=== PATIENT | male | born 1945 | race Caucasian/White ===

== ENCOUNTER 2017-12-17 16:13 | Emergency (ER) | payer OTHER ==
[~2017-12-17] VITALS: Ht 172.7 cm; Wt 83.6 kg
[~2017-12-17 16:13] MED LIST: ASPEC81 PO; CHLO4TAB70 PO; CRS20 PO; LOSA50TA6 PO; MULT-506 PO; NTRSLP4 SL; OMEG10007 PO; SALI-3 NAE; TRIA0.1C20 TD
[2017-12-17 16:18] VITALS: TEMP 36.6; Ht 172.7 cm; Wt 83.6 kg
[2017-12-17] MEDS ORDERED: DiphenhydrAMINE HCL 50 MG/ML VIAL IV STA (16:27)
[2017-12-17] MEDS ORDERED: METOCLOPRAMIDE HCL INJ 5 MG/ML 2 ML VIAL IV STA (16:27)
[2017-12-17] MEDS ORDERED: ALBUT/IPRATROP 3MG/0.5MG NEB 3 ML VIAL INH ONE (16:30)
[2017-12-17] MEDS ORDERED: DEXAMETHASONE **PF** INJ 10 MG/ML VIAL IV ONE (16:30)
[2017-12-17 16:35] VITALS: O2SAT 99
--- NOTE | 2017-12-17 16:39 | EMERGENCY ROOM VISIT NOTE ---
History Report prepared by Scott: Valerie Reynoso Under the Supervision of: Dr. Murray Benitez M.D. First contact with patient: 16:22 Chief Complaint: CHEST PAIN Stated Complaint: COUGH, CHEST PAIN, FEVER, HEADACHE- REFERRED History of Present Illness The patient is a 72 year old male who presents to the Emergency Room with complaints of generalized illness beginning a week ago. The patient reports a headache which goes into his neck, a cough, chest tightness, and sweats. He also reports he started to feel lightheaded and dizzy beginning yesterday. He reports his chest pain and lightheadedness which have acutely worsened over the past day. The patient was at [facility] in hours just prior to arrival who referred him to the ED. He denies any nausea, vomiting, urinary burning, abdominal pain, or diarrhea. The patient last took Tylenol last night. The patient has had three cardiac bypass surgeries. He reports his chest tightness does not feel like it did when he had to have bypass surgery. The patient had bronchitis a month ago treated with an antibiotic and steroid. He is former smoker quit 35 years ago. He denies any history of COPD. The patient has a history of hypertension. Source of History: patient Onset: a week ago Position: other (generalized) Quality: other (illness) Timing: worsening Associated Symptoms: + headache, + diaphoresis, + cough, + chest pain, No nausea, No vomiting, No abdominal pain, No urinary symptoms Review of Systems See HPI for pertinent positives and negatives. A total of ten systems were reviewed and were otherwise negative. Past Medical & Surgical Medical Problems: (1) Benign hypertension (2) Cataract extraction and insertion of intraocular lens (3) Coronary artery bypass grafting (4) Gastroesophageal reflux disease (5) History of repair of inguinal hernia (6) History of tonsillectomy (7) Hyperlipidemia (8) lumbar laminectomy (9) Lung mass (10) myalgias (11) Osteoarthrosis involving multiple sites but not designated as generalized (12) POSTLAMINECTOMY SYND NOS Family History FH: heart disease FH: hypertension FH: seizures Social History Smoking Status: Former Smoker Alcohol Use: occasionally Drug Use: none Marital Status: Housing Status: lives with significant other Occupation Status: retired Current/Historical Medications Scheduled Aspirin (Aspirin Ec), 81 MG PO DAILY Azithromycin (Zithromax), 250 MG PO DAILY Fish Oil (Morrison-3), 2 CAP PO DAILY Losartan Potassium (Cozaar), 1 TAB PO QAM Multivitamin (Multivitamin), 1 TAB PO DAILY Prednisone (Prednisone), 3 TAB PO DAILY Rosuvastatin Calcium (Crestor), 20 MG PO DAILY Triamcinolone Acet (Aristocort 0.1%), 1 APPLN TD BID Allergies Coded Allergies: Sulindac (Unverified Allergy, Intermediate, UPSET STOMACH, 12/17/17) Levofloxacin (Verified Allergy, Mild, RASH, 06/26/16) DARYL Inhibitors (Verified Allergy, Unknown, ., 12/17/17) NSAIDs (Verified Adverse Reaction, Mild, ibuprofen makes pt vomit, ) Physical Exam Vital Signs Date Time Temp Pulse Resp B/P (MAP) Pulse Ox O2 Delivery O2 Flow Rate FiO2 12/17/17 19:19 82 21 125/62 96 Room Air 12/17/17 18:30 126/70 12/17/17 18:27 82 21 96 12/17/17 18:00 142/59 12/17/17 17:57 74 27 99 12/17/17 17:52 133/72 12/17/17 17:43 71 19 100 12/17/17 17:13 72 16 99 12/17/17 17:00 159/84 12/17/17 16:51 64 24 95 Room Air 12/17/17 16:48 153/69 12/17/17 16:45 66 12/17/17 16:35 99 Mask 12/17/17 16:18 36.6 66 22 177/74 97 Room Air Physical Exam GENERAL: Awake, alert, fatigued-appearing, in no distress HENT: Normocephalic, atraumatic. Oropharynx unremarkable. Dry MM. EYES: Normal conjunctiva. Sclera non-icteric. NECK: Supple. No nuchal rigidity. FROM. No JVD. RESPIRATORY: Scant scattered intermittent wheezes. CARDIAC: Regular rate, normal rhythm. Extremities warm and well perfused. Pulses equal. ABDOMEN: Soft, non-distended. No tenderness to palpation. No rebound or guarding. No masses. RECTAL: Deferred. MUSCULOSKELETAL: Chest examination reveals no tenderness. The back is symmetrical on inspection without obvious abnormality. There is no CVA tenderness to palpation. No joint edema. LOWER EXTREMITIES: Calves are equal size bilaterally and non-tender. No edema. No discoloration. NEURO: Normal sensorium. No sensory or motor deficits noted. SKIN: No rash or jaundice noted. Medical Decision & Procedures ER Provider Diagnostic Interpretation: Radiology results as stated below per my review and radiologist interpretation: CHEST ONE VIEW PORTABLE FINDINGS: Median sternotomy wires noted. Atherosclerosis of aortic arch. Cardiac silhouette top normal in size. Mildly low lung volumes. Minimal bandlike opacity at the left lung base. No large effusion or pneumothorax. Degenerative changes of the thoracic spine. Upper abdomen normal. IMPRESSION: 1. Minimal left basilar atelectasis in the setting of mildly low lung volumes. No other evidence of acute cardiopulmonary disease. Electronically signed by: Brayan Hernandes M.D. Laboratory Results 12/17/17 16:35 Red Blood Count 4.78, Mean Corpuscular Volume 88.5, Mean Corpuscular Hemoglobin 31.0, Mean Corpuscular Hemoglobin Concent 35.0, Mean Platelet Volume 8.8, Neutrophils (%) (Auto) 75.1, Lymphocytes (%) (Auto) 15.7, Monocytes (%) (Auto) 6.9, Eosinophils (%) (Auto) 1.8, Basophils (%) (Auto) 0.3, Neutrophils # (Auto) 4.56, Lymphocytes # (Auto) 0.95, Monocytes # (Auto) 0.42, Eosinophils # (Auto) 0.11, Basophils # (Auto) 0.02 12/17/17 16:35 Test 12/17/17 16:35 12/17/17 17:00 White Blood Count 6.07 K/uL (4.8-10.8) Red Blood Count 4.78 M/uL (4.7-6.1) Hemoglobin 14.8 g/dL (14.0-18.0) Hematocrit 42.3 % (42-52) Mean Corpuscular Volume 88.5 fL (80-100) Mean Corpuscular Hemoglobin 31.0 pg (25-34) Mean Corpuscular Hemoglobin Concent 35.0 g/dl (32-36) Platelet Count 171 K/uL (130-400) Mean Platelet Volume 8.8 fL (7.4-10.4) Neutrophils (%) (Auto) 75.1 % Lymphocytes (%) (Auto) 15.7 % Monocytes (%) (Auto) 6.9 % Eosinophils (%) (Auto) 1.8 % Basophils (%) (Auto) 0.3 % Neutrophils # (Auto) 4.56 K/uL (1.4-6.5) Lymphocytes # (Auto) 0.95 K/uL (1.2-3.4) Monocytes # (Auto) 0.42 K/uL (0.11-0.59) Eosinophils # (Auto) 0.11 K/uL (0-0.5) Basophils # (Auto) 0.02 K/uL (0-0.2) RDW Standard Deviation 40.7 fL (36.4-46.3) RDW Coefficient of Variation 12.7 % (11.5-14.5) Immature Granulocyte % (Auto) 0.2 % Immature Granulocyte # (Auto) 0.01 K/uL (0.00-0.02) Anion Gap 3.0 mmol/L (3-11) Est Creatinine Clear Calc Drug Dose 67.6 ml/min Estimated GFR () 84.5 Estimated GFR (Non- 72.9 BUN/Creatinine Ratio 13.7 (10-20) Calcium Level 9.1 mg/dl (8.5-10.1) Total Bilirubin 0.6 mg/dl (0.2-1) Direct Bilirubin 0.2 mg/dl (0-0.2) Aspartate Amino Transf (AST/SGOT) 20 U/L (15-37) Alanine Aminotransferase (ALT/SGPT) 30 U/L (12-78) Alkaline Phosphatase 97 U/L (45-117) Troponin I < 0.015 ng/ml (0-0.045) Pro-B-Type Natriuretic Peptide 41 pg/ml (0-900) Total Protein 7.1 gm/dl (6.4-8.2) Albumin 3.7 gm/dl (3.4-5.0) Lipase 150 U/L (73-393) Influenza Type A (RT-PCR) Neg for Influ A (NEG) Influenza Type B (RT-PCR) Neg for Influ B (NEG) Laboratory results reviewed by me Medications Administered Medications (Trade) Dose Ordered Sig/Mellissa Route Start Time Stop Time Status Last Admin Dose Admin Dexamethasone Sodium Phosphate (Dexamethasone Inj Pf) 10 mg NOW ONCE IV 12/17/17 16:30 12/17/17 16:34 DC 12/17/17 16:54 10 MG Metoclopramide HCl (Reglan Inj) 10 mg NOW STAT IV 12/17/17 16:27 12/17/17 16:34 DC 12/17/17 16:54 10 MG Diphenhydramine HCl (Benadryl Inj) 25 mg NOW STAT IV 12/17/17 16:27 12/17/17 16:34 DC 12/17/17 16:57 25 MG Albuterol/ Ipratropium (Duoneb) 12 ml ONE ONCE INH 12/17/17 16:30 12/17/17 16:34 DC 12/17/17 16:45 12 ML Albuterol (Ventolin Hfa Inhaler) 2 puffs NOW STAT INH 12/17/17 19:09 12/17/17 19:11 DC 12/17/17 19:16 2 PUFFS Azithromycin (Zithromax Tab) 500 mg NOW STAT PO 12/17/17 19:09 12/17/17 19:11 DC 12/17/17 19:16 500 MG ECG Per My Interpretation Indication: chest pain Rate (beats per minute): 68 Rhythm: sinus rhythm Findings: no acute ischemic change, other (PSVC, normal axis) ED Course 162: The patient was evaluated in room B9. A complete history and physical exam was performed. 1844: I updated the patient on his test results. He is resting comfortably. 1919: I reevaluated the patient. Discussed results and discharge instructions: He verbalized understanding and agreement. The patient is ready for discharge. Medical Decision I reviewed the patient's past medical history, medications, and the nursing notes as described above.Prior records/ancillary studies reviewed. Differential diagnosis: Etiologies such as cardiac ischemia, aortic dissection, pulmonary embolism, pneumonia, pneumothorax, musculoskeletal, infections, pericarditis, myocarditis , esophageal rupture, gastrointestinal, migraine headache, meningitis, sinusitis , CO exposure, ICH, SAH, infection, tumor, headache, sinus thrombosis, arterial dissection, as well as others were entertained. The patient is a 72 y/o gentleman with a pmhx of CAD, s/p bypass who presents to the emergency department with chest tightness, lightheadedness, and HARVEY evolving over the course of today in the setting of generalized weakness/ fatigue and cough over the past week in the setting of being treated for bronchitis last month per HPI. On arrival the patient is in NAD, AFVSS. Lungs with scant intermittent wheezes. Neuro intact including normal cerebellar function with [id number], alternating palms, [id number]. EKG unremarkable negative for acute ischemia. Trop negative in the setting of > 6 hours of sx. CXR negative. Patient feeling improved after dexamethasone, reglan, benadryl, duoneb. Given improvement and progressive nature of sx in setting of respiratory sx no indication for head imaging at this time. Sx most likely related to bronchitis. Will treat with Azithromycin. Plan for pcp f/u. Findings and plan for follow-up reviewed with patient. Patient agreeable and d/c'd per discharge instructions. Medication Reconcilliation Current Medication List: was personally reviewed by me Blood Pressure Screening Patient's blood pressure: Normal blood pressure Impression Primary Impression: Bronchitis Scribe Attestation The scribe's documentation has been prepared under my direction and personally reviewed by me in its entirety. I confirm that the note above accurately reflects all work, treatment, procedures, and medical decision making performed by me. Departure Information Dispostion Home / Self-Care Prescriptions Azithromycin (Zithromax) 250 Mg Tab 250 MG PO DAILY, #4 TAB Prov: Murray Benitez M.D. 12/17/17 Prednisone (Prednisone) 20 Mg Tab 3 TAB PO DAILY for 4 Days, #12 TAB FOR 4 DAYS Prov: Murray Benitez M.D. 12/17/17 Referrals Jovanni Rivera M.D. (PCP) Forms Call Back Authorization, HOME CARE DOCUMENTATION FORM, IMPORTANT VISIT INFORMATION Patient Instructions ED Bronchitis Asthmatic, My [facility] Additional Instructions Please follow up with your primary care physician in the next 1-3 days for re- evaluation. You likely have a bronchitis. Otherwise, your exam, EKG, chest xray, and lab results did not show signs of an emergent condition at this time. Acetaminophen or ibuprofen for pain and fevers as needed. Prednisone and azithromycin as directed. Saline nasal spray to help thin a clear mucus as needed. Albuterol every 4 hours for the next 48 hours and then as needed thereafter. Drink plenty of fluids to ensure hydration. Return to the emergency department for worsening symptoms as described in the accompanying instructions.
--- NOTE | 2017-12-17 16:45 | DIAGNOSTIC IMAGING REPORT ---
CHEST ONE VIEW PORTABLE CLINICAL HISTORY: 72 years-old Male presenting with CHEST PAIN. TECHNIQUE: Portable upright AP view of the chest was obtained. COMPARISON: 06/26/2016. FINDINGS: Median sternotomy wires noted. Atherosclerosis of aortic arch. Cardiac silhouette top normal in size. Mildly low lung volumes. Minimal bandlike opacity at the left lung base. No large effusion or pneumothorax. Degenerative changes of the thoracic spine. Upper abdomen normal. IMPRESSION: 1. Minimal left basilar atelectasis in the setting of mildly low lung volumes. No other evidence of acute cardiopulmonary disease. Electronically signed by: Brayan Hernandes M.D. 12/17/2017 4:44 PM Dictated Date/Time: 12/17/2017 4:43 PM
[2017-12-17 16:50] LABS: BASO % 0.3 %; BASO ABS # 0.02 K/uL (0-0.2); EOS % 1.8 %; EOS ABS # 0.11 K/uL (0-0.5); HEMATOCRIT 42.3 % (42-52); HEMOGLOBIN 14.8 g/dL (14.0-18.0); IG# 0.01 K/uL (0.00-0.02); LYMPH % 15.7 %; LYMPH ABS # 0.95 K/uL (1.2-3.4); MEAN CELL VOLUME 88.5 fL (80-100); MEAN PLATELET VOLUME 8.8 fL (7.4-10.4); MONO % 6.9 %; MONO ABS # 0.42 K/uL (0.11-0.59); NEUT % 75.1 %; NEUT ABS # 4.56 K/uL (1.4-6.5); PLATELET COUNT 171 K/uL (130-400); RED CELL DISTRIBUTION WIDTH CV 12.7 % (11.5-14.5); RED CELL DISTRIBUTION WIDTH SD 40.7 fL (36.4-46.3); WHITE BLOOD COUNT 6.07 K/uL (4.8-10.8)
[2017-12-17 16:51] VITALS: PULSE 64; O2SAT 95
[2017-12-17 17:05] LABS: ALBUMIN 3.7 gm/dl (3.4-5.0); ALT/SGPT 30 U/L (12-78); AST/SGOT 20 U/L (15-37); BLOOD UREA NITROGEN 14 mg/dl (7-18); CALCIUM 9.1 mg/dl (8.5-10.1); CARBON DIOXIDE 26 mmol/L (21-32); CREATININE 1.01 mg/dl (0.60-1.40); GLUCOSE 93 mg/dl (70-99); LIPASE 150 U/L (73-393); POTASSIUM 3.9 mmol/L (3.5-5.1); SODIUM 139 mmol/L (136-145)
[2017-12-17 17:10] LABS: ALKALINE PHOSPHATASE 97 U/L (45-117); TOTAL PROTEIN 7.1 gm/dl (6.4-8.2)
[2017-12-17] MEDS ORDERED: TRMCR130WC TD (17:15)
[2017-12-17] MEDS ORDERED: ASPI81TA28 PO (17:15)
[2017-12-17] MEDS ORDERED: ROSU20TA PO (17:15)
[2017-12-17] MEDS ORDERED: PRED20TA PO (19:07)
[2017-12-17] MEDS ORDERED: AZIT250T PO (19:07)
[2017-12-17] MEDS ORDERED: ALBUTEROL HFA 8 GM INHALER INH STA (19:09)
[2017-12-17] MEDS ORDERED: AZITHROMYCIN 250 MG TAB PO STA (19:09)
[2017-12-17 19:17] LABS: INFLUENZA A PCR Neg for Influ A (NEG); INFLUENZA B PCR Neg for Influ B (NEG)
[2017-12-17 19:19] VITALS: BP 125/62; PULSE 82; O2SAT 96
== END 2017-12-17 19:26 | disposition home or self-care (01) ==
LOC: C.EDB 16:15
DX: J40 Bronchitis, not specified as acute or chronic (principal); I10 Essential (primary) hypertension; I25.10 Atherosclerotic heart disease of native coronary artery without angina pectoris; Z95.1 Presence of aortocoronary bypass graft; K21.9 Gastro-esophageal reflux disease without esophagitis; E78.5 Hyperlipidemia, unspecified; Z87.891 Personal history of nicotine dependence; Z79.82 Long term (current) use of aspirin; Z79.899 Other long term (current) drug therapy; Z88.1 Allergy status to other antibiotic agents; Z88.8 Allergy status to other drugs, medicaments and biological substances